=== PATIENT | male | born 1940 | race Caucasian/White ===

== ENCOUNTER 2018-06-28 10:37 | Emergency (ER) | payer OTHER ==
[2018-06-28 10:42] VITALS: BP 134/91; PULSE 64; TEMP 98.1; BMI 25.8
--- NOTE | 2018-06-28 10:58 | PDOC ---
History of Present Illness - General Chief Complaint: Headache Stated Complaint: HEADACHE Time Seen by Provider: 06/28/18 10:48 - History of Present Illness Initial Comments: 06/28/18 11:59 77 years old witha past medical history presents to the emergency department with one-day history of sharp stabbing pain to the back of his head. No trauma patient states he did turn his neck the other day has been having intermittent proximally once every minute sharp electricity-like pain non-radiating to the left posterior base of his occiput. No associated visual symptoms no recent weight loss no other persistent headache chest pain shortness of breath nausea vomiting diarrhea no eye symptoms no lacrimation no tearing no changes in vision symptoms are intermittent approximately every 60 seconds no exacerbating or alleviating factors self-limiting only lasts 1 second per episode. No migraine history. Past History - Past Medical History Allergies/Adverse Reactions: Allergies Allergy/AdvReac Type Severity Reaction Status Date / Time aspirin Allergy Verified 06/28/18 10:38 Home Medications: Ambulatory Orders Melatonin/Pyridoxine HCl (B6) [Melatonin 3 mg Tablet] 1 each PO DAILY #30 tablet 06/28/18 COPD: No - Suicide/Smoking/Psychosocial Hx Smoking History: Never smoked Hx Alcohol Use: Yes (WINE DAILY) Drug/Substance Use Hx: No Review of Systems - Review of Systems Comments:: 06/28/18 11:59 ROS: A complete review of 10 out of 10 review of systems is taken and is negative apart from what is previously mentioned below and in the HPI. *Physical Exam - Vital Signs Last Vital Signs Temp Pulse Resp BP Pulse Ox 98.1 F 64 18 134/91 100 06/28/18 10:37 06/28/18 10:37 06/28/18 10:37 06/28/18 10:37 06/28/18 10:37 - Physical Exam Comments: 06/28/18 12:00 Vitals: Triage Vital signs reviewed General Appearance: no acute distress, well nourished well developed, Head: Atraumatic, Eyes: Pupils equal reactive round, extraocular movement intact Throat: Posterior oropharynx without erythema, mucous membranes moist, Neck: Supple;No Nucal rigidity Chest Wall: Nontender Cardiac: Regular rate and rhythym, no murmurs, no rubs, no gallops, Lungs: Clear to auscultation bilateral, good air movement bilaterally, Abdomen: Soft, non distended, normal bowel sounds, non tender to palpation Extremities: Full range of motion to all extremities, no cyanosis, clubbing, or edema Skin: Warm and dry, no rashes or lesions, no rash, no petechiae Neuro: Strength intact to all extremities, Sensation intact to all extremities Psych: normal mood, normal affect Medical Decision Making - Medical Decision Making 06/28/18 17:33 CT had with no acute findings. No red flags on patient's history. Given seconds of intermittent pain history examination consistent with primary stabbing headache. Less likely cluster headache or trigeminal nature given no autonomic findings Case discussed with neurology unfortunately patient with severe aspirin and NSAID ALLERGY we'll try Tylenol and melatonin. Patient will follow up with neurology on Sunday if no improvement in symptoms to return to ED for any severe worsening symptoms or for any concerns. *DC/Admit/Observation/Transfer Diagnosis at time of Disposition: Headache Qualifiers: Headache type: unspecified Headache chronicity pattern: episodic headache Intractability: not intractable Qualified Code(s): R51 - Headache - Discharge Dispostion Condition at time of disposition: Stable Decision to Admit order: No - Prescriptions Prescriptions: Melatonin/Pyridoxine HCl (B6) [Melatonin 3 mg Tablet] 1 each PO DAILY #30 tablet - Referrals Referrals: Miguelito Booker MD [Staff Physician] - - Patient Instructions Additional Instructions: Take Tylenol 500 mg every 6 hours for the next 3 days. Take melatonin 3 mg 1-2 tabs daily for the next week. If no improvement in symptoms by Sunday follow-up with Neurology - Post Discharge Activity
== END 2018-06-28 12:27 | disposition home or self-care (01) ==
LOC: FER 10:37
DX: R51 Headache (principal)
CPT/HCPCS: 70450-TC; 99281-25